=== PATIENT | female | born 1985 | race Hispanic/Latino ===

== ENCOUNTER 2017-02-07 19:21 | Emergency (ER) | payer BC ==
[2017-02-07 19:30] VITALS: RESP 16; O2SAT 100
--- NOTE | 2017-02-07 20:29 | ED PDOC ---
HPI: Abdomen Time Seen by Provider: 02/07/17 20:16 Chief Complaint (Nursing): Abdominal Pain Chief Complaint (Provider): Abdominal pain mainly RUQ History Per: Patient History/Exam Limitations: no limitations Onset/Duration Of Symptoms: Days (since ), Waxing/Waning Outside of [place] travel?: No Current Symptoms Are (Timing): Still Present Context: Food Pain Scale Rating Of: 6 (but at worse 10) Location Of Pain/Discomfort: RUQ Quality Of Discomfort: Gas Associated Symptoms: Nausea, Vomiting Exacerbating Factors: Food, Other (food other times it just get worse without anything exacerbating it ) Alleviating Factors: None Additional History Per: Patient Additional Complaint(s): Pt is a 32 y/o female with no significant medical history currently 10weeks presenting to ED with chief complaint of abdominal pain mainly RUQ pain that started on night shortly after dinner states she had a calzone for dinner, pain kept her up most of the night vomited twice night. Thursday morning woke up not feeling completely pain free so eat some plain rice during the day pain was ok but later that evening when she had pasta that had butter after 3 bites pain started started again. Today she only had plain rice and some banana. she called her painting technician who told her based of her symptoms it does not sound like it has anything to do with her but if pain persist she should get checked out. Pt reports pain started to get severe tonight and on her way to ED she vomited. Describes pain as gassy, does not radiate anywhere , denies any vaginal bleeding, dysuria, urinary frequency, diarrhea, chest pain, headache, fever, chills, lightheadedness PMD- None [employer]- [facility] in [facility] [place] Past Medical History Vital Signs: Last Vital Signs Temp 97.8 F 02/07/17 19:27 Pulse 48 L 02/07/17 19:27 Resp 16 02/07/17 19:27 BP 121/67 02/07/17 19:27 Pulse Ox 100 02/07/17 20:50 - Medical History PMH: No Chronic Diseases - Family History Family History: States: No Known Family Hx - Immunization History Hx Tetanus Toxoid Vaccination: No - Home Medications Home Medications: Ambulatory Orders Medication Instructions Recorded Nitrofurantoin Macrocrystals 100 mg PO BID #14 cap 02/08/17 [Macrobid] - Allergies Allergies/Adverse Reactions: Allergies Allergy/AdvReac Type Severity Reaction Status Date / Time panadol Allergy RASH Uncoded 02/07/17 19:33 Review of Systems Constitutional: Negative for: Fever, Chills, Malaise Cardiovascular: Negative for: Chest Pain, Palpitations, Light Headedness Respiratory: Negative for: Cough, Shortness of Breath Gastrointestinal: Positive for: Nausea, Vomiting, Abdominal Pain. Negative for : Diarrhea, Constipation Genitourinary Female: Negative for: Dysuria, Frequency, Vaginal Discharge, Vaginal Bleeding, Pelvic Pain Musculoskeletal: Negative for: Neck Pain, Back Pain Neurological: Negative for: Weakness, Dizziness Physical Exam - Physical Exam Appears: Positive for: No Acute Distress Skin: Positive for: Normal Color Eye Exam: Positive for: Normal appearance, EOMI Cardiovascular/Chest: Positive for: Regular Rate, Rhythm. Negative for: Murmur Respiratory: Positive for: Normal Breath Sounds. Negative for: Crackles, Rales Gastrointestinal/Abdominal: Positive for: Bowel Sounds, Soft, Tenderness (RUQ and RLQ pain on palpation, Negative Spring, Negative Mcburneys). Negative for : Distended, Guarding Back: Negative for: L CVA Tenderness, Muscle Spasm Extremity: Negative for: Tenderness, Calf Tenderness, Swelling Neurologic/Psych: Positive for: Alert, Oriented - Laboratory Results Result Diagrams: 02/07/17 20:27 02/07/17 20:30 Urine POC: Positive - ECG O2 Sat by Pulse Oximetry: 100 - Progress Re-evaluation Time: 23:40 Condition: Re-examined, Unchanged Medical Decision Making Medical Decision Making: Given pt's presentation will rule out gallstones and ectopic Cbc cmp lipase Ultrasound Pelvic ultrasound Urine postive for bacteria- will give script for asymptomatic bacteruria Informed pt of ovarian cyst seen on Ultrasound Disposition - Clinical Impression Clinical Impression: Abdominal pain, UTI (urinary tract infection) - Disposition Disposition: Routine/Home Disposition Time: 00:15 Condition: STABLE Additional Instructions: Please follow up with your Frame Sample And Pattern Supervisor in 1-2 days Return to Ed for any worsening of your condition Prescriptions: Nitrofurantoin Macrocrystals [Macrobid] 100 mg PO BID #14 cap Instructions: Urinary Tract Infection in (ED)
[2017-02-07 20:34] LABS: BASO # 0.1 K/uL (0.0-0.2); BASO % 0.7 % (0.0-2.0); EOS # 0.1 K/uL (0.0-0.7); EOS % 1.2 % (0.0-4.0); HEMATOCRIT 37.2 % (34.0-47.0); LYMPH # 2.4 K/uL (1.0-4.3); LYMPH % 24.8 % (20.0-40.0); MEAN CELL VOLUME 86.8 fl (81.0-99.0); MEAN CORPUSCULAR HEMOGLOBIN 28.6 pg (27.0-31.0); MEAN PLATELET VOLUME 9.2 fl (7.2-11.7); MONO # 1.1 K/uL (0.0-0.8); NEUT % 62.3 % (50.0-75.0); NRBC % 0.1 % (0.0-0.0); WHITE BLOOD COUNT 9.6 K/uL (4.8-10.8)
[2017-02-07 20:44] LABS: BLOOD UREA NITROGEN 7 mg/dl (7-17); CALCIUM 9.2 mg/dL (8.4-10.2); CARBON DIOXIDE 22 mmol/L (22-30); CHLORIDE 103 mmol/L (98-107); GFR AFRICAN-AMERICAN > 60; GLUCOSE,RANDOM 92 mg/dL (65-105); LIPASE 132 U/L (23-300); POTASSIUM 4.2 MMOL/L (3.6-5.0); SODIUM 134 mmol/l (132-148)
[2017-02-07 20:57] LABS: ALB/GLOB RATIO 1.3 (1.0-2.1); ALKALINE PHOSPHATASE 38 U/L (38-126); ALT/SGPT 28 U/L (9-52); AST/SGOT 22 U/L (14-36); BILIRUBIN,TOTAL 0.5 mg/dl (0.2-1.3); BLOOD UREA NITROGEN 7 mg/dl (7-17); CALCIUM 9.3 mg/dL (8.4-10.2); CARBON DIOXIDE 22 mmol/L (22-30); CHLORIDE 103 mmol/L (98-107); GFR AFRICAN-AMERICAN > 60; GLUCOSE,RANDOM 91 mg/dL (65-105); POTASSIUM 4.2 MMOL/L (3.6-5.0); SODIUM 134 mmol/l (132-148)
[2017-02-07 21:00] LABS: RBC URINE 1 /hpf (0-3); URINE BACTERIA MANY (<OCC); URINE BILIRUBIN NEGATIVE (NEGATIVE); URINE BLOOD NEGATIVE (NEGATIVE); URINE COLOR STRAW (YELLOW); URINE GLUCOSE (UA) NEG (Normal); URINE KETONE NEGATIVE (NEGATIVE); URINE LEUKOCYTE ESTERASE NEG Leu/uL (Negative); URINE PROTEIN NEGATIVE (NEGATIVE); URINE UROBILINOGEN 0.2-1.0 mg/dL (0.2-1.0); WBC URINE 4 /hpf (0-5)
[2017-02-08 00:28] VITALS: BP 115/85; PULSE 75; TEMP 97.9
--- NOTE | 2017-02-08 09:46 | US ---
HISTORY: RUQ pain COMPARISON: None available. TECHNIQUE: Sonographic evaluation of the right upper quadrant of the abdomen. FINDINGS: LIVER: Measures 13.5 cm in sagittal dimension and appears within normal limits of size, shape, and echotexture. No focal hepatic mass identified. The main portal vein appears patent with normal directional flow. No intrahepatic bile duct dilatation. GALLBLADDER: No gallstones. No gallbladder wall thickening or pericholecystic edema. Negative sonographic Mary's sign as assessed by the rug cleaner hand. COMMON BILE DUCT: Measures 4 mm. PANCREAS: Not well visualize. RIGHT KIDNEY: Measures 9.3 x 4.1 x 5.0 cm. No obstructing calculus or hydronephrosis identified. AORTA: Limited visualization appears grossly unremarkable. IVC: Limited visualization appears grossly unremarkable. OTHER FINDINGS: None . IMPRESSION: No acute findings. Preliminary impression was provided by virtual radiologic.
--- NOTE | 2017-02-08 09:56 | US ---
Indication: Rule out ectopic Comparison: None available Technique: Transvaginal pelvic ultrasound Findings: Uterus measures approximately 12.0 x 7.2 x 7.4 cm. Anteverted. Cervix length measures approximately 5 cm. Trace fluid noted within the cervix. There is a single intrauterine fetus present. 7 mm yolk sac. The gestational sac measures 3.8 cm and is compatible with a gestational age of 9 weeks 1 day. The crown-rump length measures 3.1 cm and is compatible with a gestational age of 10 weeks 0 days. There is heart motion which measured 157 BPM. The right ovary measures 4.6 x 1.8 x 3.2 cm and contains 1.3 x 1.2 cm cyst. The left ovary measures approximately 2.4 x 1.8 x 1.4 cm. Trace pelvic free fluid. Impression: Live single intrauterine with estimated gestational age 9 weeks 1 day by gestational sac calculation and 10 weeks 0 days by crown-rump length calculation. heart rate 157 bpm. Advise an anomaly screen at 16-18 weeks gestational age Trace pelvic free fluid. Trace fluid within the cervix. 1.4 cm anechoic right ovarian cyst. Preliminary impression was provided by virtual radiologic.
== END 2017-02-08 00:30 | disposition home or self-care (01) ==
LOC: H.ER 19:21
DX: O23.40 Unspecified infection of urinary tract in pregnancy, unspecified trimester (principal); O21.9 Vomiting of pregnancy, unspecified; Z3A.10 10 weeks gestation of pregnancy; N83.201 Unspecified ovarian cyst, right side

== ENCOUNTER 2017-09-03 17:14 | Inpatient (IN) | payer BC ==
[2017-09-03 18:00] VITALS: BMI 27.5
--- NOTE | 2017-09-03 18:08 | OBADHP ---
Datetime: 09/03/2017 18:01 Admit Comment, IP Provider: 32yo at 39.6wks GA c/o ctxs and gush of fluid _2hours ago. +FM. O therwise patient without complaints. No records available for review. Pt reports GBS+ PMHx none PSHx none Meds PNV NKDA OBHx SocHx No tob, etoh, drugs PE refer to PE A-- SROM, Early labor, GBS+ P-- Admit for management of labor, PCN-G for GBS proph. Discussed plan with patient and all patie nt questions answered. Pelvic Type - PN: Adequate Extremities - PN: Normal Abdomen - PN: Normal Back - PN: Normal General - PN: Normal FHR - Baseline A Provider: 120s-130s Membranes, Provider: Ruptured Contraction Comments Provider: q2-3min Comments, ACOG Physical Exam: SSE: grossly ruptured EFW 7.5lbs cephalic via exam Pool Provider: Positive Vital Signs Provider: Reviewed; Within Normal Limits IP Chief Complaint: Uterine contractions; Suspected ruptured membranes NICHD Variability Prov Fetus A: Moderate 6-25bpm NICHD Accel Fetus A IP Provider: 15X15 FHR Category Provider Fetus A: Category I NICHD Decel Fetus A IP Provider: None Dilatation, Provider: 1 Effacement, Provider: 100 Station, Provider: 0 Genitourinary Exam: Normal EGA AdmitDate IP: 39.6 IP Adm Impression: Term, intrauterine ; Active labor; Ruptured Membranes IP Admit Plan: Admit to unit; Initiate labor protocol
[2017-09-03] MEDS ORDERED: AMPicillin 2 GM in Sodium Chloride 0.9% 100 ML IVPB STA (18:09)
[2017-09-03] MEDS ORDERED: AMPicillin 1 GM in Sodium Chloride 0.9% 100 ML IVPB SCH (18:15)
[2017-09-03] MEDS ORDERED: Lactated Ringer's 1,000 ML IV SCH (18:15)
[2017-09-03] MEDS: Lactated Ringer's 1,000 ML IV SCH ×2 (18:15→18:30)
[2017-09-03 18:36] LABS: BASO # 0.1 K/uL (0.0-0.2); BASO % 0.7 % (0.0-2.0); EOS # 0.1 K/uL (0.0-0.7); EOS % 0.8 % (0.0-4.0); HEMATOCRIT 36.5 % (34.0-47.0); LYMPH # 2.5 K/uL (1.0-4.3); MEAN CELL VOLUME 86.8 fl (81.0-99.0); MEAN CORPUSCULAR HEMOGLOBIN 28.7 pg (27.0-31.0); MEAN CORPUSCULAR HGB CONC 33.1 g/dL (33.0-37.0); MEAN PLATELET VOLUME 10.4 fl (7.2-11.7); MONO # 1.5 K/uL (0.0-0.8); MONO % 11.5 % (0.0-10.0); NEUT # 8.9 K/uL (1.8-7.0); RED CELL DISTRIBUTION WIDTH 13.1 % (11.5-14.5); WHITE BLOOD COUNT 13.1 K/uL (4.8-10.8)
--- NOTE | 2017-09-03 18:54 | OBPN ---
Datetime: 09/03/2017 18:52 IP Progress Impression: Normal progression of labor; Reassuring heart rate IP Procedures: Sterile Vag Exam IP Progress Plan: Continue present management FHR - Baseline A Provider: 110s-120s IP Fetus A Comments: Minor variable decelerations. Resolved after exam and scalp stim. IP Progress Note Comment: Both MWB/FWB reassuring at this time. Continue current management. Vital Signs Provider: Reviewed; Within Normal Limits NICHD Accel Fetus A IP Provider: 15X15 FHR Category Provider Fetus A: Category II NICHD Variability Prov Fetus A: Moderate 6-25bpm Dilatation, Provider: 4 Effacement, Provider: 100 Station, Provider: 0 NICHD Decel Fetus A IP Provider: Variable Datetime: 09/03/2017 18:01 Pool Provider: Positive Membranes, Provider: Ruptured Contraction Comments Provider: q2-3min
[2017-09-03] MEDS ORDERED: Oxytocin 30 UNITS in Sodium Chloride 0.9% 500 ML IV ONE (19:03)
[2017-09-03] MEDS ORDERED: Fentanyl/Bupivacaine HCl 250 ML EPI ONE (19:08)
[2017-09-03] MEDS ORDERED: Bupivacaine HCl 0.25% PF (10 ml) Inj ONE (19:08)
[2017-09-03] MEDS ORDERED: ceFAZolin IV 2 gm in Dextrose 2 GM/50 ML BAG IVPB ONE (23:40)
[2017-09-03] MEDS ORDERED: ePHEDrine 50 mg/ml Inj ONE (23:46)
[2017-09-03] MEDS ORDERED: Phenylephrine 10 mg/ml Inj ONE (23:46)
[2017-09-03] MEDS ORDERED: Morphine 5 mg/10 ml preservative-free Inj(Duramorph) ONE (23:47)
[2017-09-03] MEDS ORDERED: Bupivacaine HCl 0.5% PF (30 ml) Inj ONE (23:48)
[2017-09-04] MEDS ORDERED: ceFAZolin IV 2 gm in Dextrose 2 GM/50 ML BAG IVPB ONE
[2017-09-04] MEDS ORDERED: Oxycodone/Acetaminophen 5/325 mg Tab PO PRN ×4 (00:41→03:56)
[2017-09-04] MEDS ORDERED: DiphenhydrAMINE 50 mg/ml Inj IVP PRN ×2 (00:41→03:56)
--- NOTE | 2017-09-04 08:27 | OBDS ---
DELIVERY PERSONNEL Delivery Doctor: Saloni Du MD Scrub Nurse: Dejah Nolasco Temporary Staff Accountant: Linnea Jimenez RN Anesthesiologist: Saloni Pham MD Resident: Dr. Ramos PGY1 MATERNAL INFORMATION Delivery Anesthesia: Epidural Medications in Delivery: oxytocin, ancef Estimated Blood Loss (ml): 800 Placenta Cultured: Yes Maternal Complications: None Other Maternal Complications: nonreassuring FHR Provider Comments: 1' LFT C/S Pt delivered viable infant male with apgars 9/9. Normal uterus, tubes bilat, ovaries bilat. EBL 800cc IVF 900cc LR UO 200cc clear No complications LABOR SUMMARY EDC: 09/04/2017 00:00 No. Babies in Womb: 1 Attempted: No Labor Anesthesia: Epidural LABOR INFORMATION Reason for Induction: Not Applicable Onset of Labor: 09/03/2017 19:00 Oxytocin: N/A Group B Beta Strep: Positive Antibiotics # of Doses: 2 Steroids Given: None Reason Steroids Not Administered: Not Applicable MEMBRANES Membranes Rupture Method: Spontaneous Rupture of Membranes: 09/03/2017 16:30 Length of Rupture (hrs): 7.77 Amniotic Fluid Color: Clear Amniotic Fluid Amount: Moderate Amniotic Fluid Odor: Normal STAGES OF LABOR Stage 3 hrs: 0 Stage 3 min: 1 Total Time in Labor hrs: 5 Total Time in Labor min: 17 CSECTION DELIVERY Primary Indication: Failure to Progress Secondary Indication: Nonreassuring Status CSection Urgency: Elective CSection Incidence: Primary Labor: Labor Elective: Elective CSection Incision: Lower Uterine Transverse Uterine Closure: Double-layer closure BABY A INFORMATION Delivery Date/Time: 09/04/2017 00:16 Method of Delivery: Born in Route : No : N/A Forceps: N/A Vacuum Extraction: N/A Shoulder Dystocia : No SHOULDER DYSTOCIA BABY A Delivery Date/Time: 09/04/2017 00:16 PRESENTATION/POSITION BABY A Presentation: Cephalic Cephalic Presentation: Vertex PLACENTA INFORMATION BABY A Placenta Delivery Time : 09/04/2017 00:17 Placenta Method of Delivery: Manual Removal Placenta Status: Delivered SCORES BABY A Heart Rate 1 min: >100 bpm Resp Effort 1 min: Good Cry Reflex Irritability 1 min: Cough or Sneeze or Pulls Away Muscle Tone 1 min: Active Motion Color 1 min: Body Jackpot, Extremities Blue Resuscitation Effort 1 min: N/A SCORE 1 MIN: 9 Heart Rate 5 min: >100 bpm Resp Effort 5 min: Good Cry Reflex Irritability 5 min: Cough or Sneeze or Pulls Away Muscle Tone 5 min: Active Motion Color 5 min: Body Jackpot, Extremities Blue Resuscitation Effort 5 min: N/A SCORE 5 MIN: 9 INFORMATION BABY A Gestational Age at Delivery: 40.0 Gestational Status: Term Outcome : Liveborn Infant Condition : Stable Infant Sex: Male IDENTIFICATION/MEDS BABY A ID Band Number: [id number] ID Band Location: Left Leg; Left Arm WEIGHT/LENGTH BABY A Birthweight (gms): 3960 Weight (lb): 8 Weight (oz): 12 Infant Length Inches: 21.00 Length cms: 53.3 CORD INFORMATION BABY A No. Cord Vessels: 3 Nuchal Cord : N/A Nuchal Cord Other: N/A True Knot: N/A Infant Cord pH Baby Arterial: N/A Cord pH Baby Venous: N/A Cord Blood Taken: Yes Banking/Donate Info: N/A Infant Suction: Mouth; Nose ASSESSMENT BABY A Infant Complications: None Physical Findings at Delivery: Within Normal Limits Physical Findings Other: skin to skin performed in OR Infant Respirations: Appears Normal Finishing Technician/ALS Called : No Care By: Susana Lujan EAdamoRN, JCarlocKRN Transferred To: Remains with Mother
[2017-09-05 06:47] LABS: HEMATOCRIT 29.5 % (34.0-47.0); MEAN CELL VOLUME 87.5 fl (81.0-99.0); MEAN CORPUSCULAR HGB CONC 33.1 g/dL (33.0-37.0); RED CELL DISTRIBUTION WIDTH 13.3 % (11.5-14.5)
--- NOTE | 2017-09-05 12:35 | OBPPN ---
Datetime: 09/05/2017 07:03 PP Nausea Prov: Denies PP Flatus Prov: Yes PP BM Prov: No PP Heart Prov: Normal PP Lungs Prov: Normal PP Abdomen/Uterus Prov: Normal PP Lochia Prov: Normal PP Vulva/Perineum Prov: Normal PP CVA Tenderness Prov: Normal PP Extremities Prov: Normal PP C/S Incision Prov: Normal PP Impression Prov: Normal progression PP Plan Prov: Continue present management PP Progress Note Prov: POD 1 32 y/o now seen and examined at bedside this morning. Pt had an uneventful overnight. Pt re ports pain in the area and its controlled with pain medications. Pt reports passing gas per rectum and no BM yet. Voiding w/ some blood noted. Pt is tolerating PO diet well. Ambulating w/o di zziness. Denies dizziness, chest pain, dyspnea, nausea, vomiting or calf pain. Physical Exam: General: A_O, resting comfortably in bed, NAD HEENT: oral mucosa moist. Lungs: CTA B/L, no wheezing, rhonchi or rales CVS: RRR, S1, S2 NL ABD: ND, +BS; Incision: steri strips intact. Wound looks clean, dry and intact. no induration, erythema or fluct uation. EXT: no edema, no calf tenderness Neuro/psych: AAOX3 Assessement: 32 yo s/p , doing well on POD#1 Plan: Continue regular diet as tolerated. SCD for DVT prophylaxis Ibuprofen and percocet for pain management Encourage and ambulation Anticipate discharge to home on 09/07/17 Sultan Ramos, PGY1 OB Hospitalist christin. On rounds, I saw and examined this patient. Agree with PGY1 note MAHNDO Vital Signs Provider PP: Reviewed
[2017-09-06 11:35] LABS: BILIRUBIN,TOTAL 0.3 mg/dl (0.2-1.3); TOTAL PROTEIN 6.1 G/DL (6.3-8.2)
[2017-09-06 11:43] LABS: PARTIAL THROMBOPLASTIN TIME 29.2 Seconds (25.6-37.1)
[2017-09-07 18:43] VITALS: BP 130/77; PULSE 66; RESP 20; TEMP 98.3; O2SAT 97
--- NOTE | 2017-09-08 22:57 | OBPPN ---
Datetime: 09/07/2017 06:30 PP Pain Prov: Within normal limits PP Nausea Prov: Denies PP Flatus Prov: Yes PP BM Prov: Yes PP Heart Prov: Normal PP Lungs Prov: Normal PP Abdomen/Uterus Prov: Normal PP Lochia Prov: Normal PP CVA Tenderness Prov: Normal PP Extremities Prov: Normal PP C/S Incision Prov: Normal PP Impression Prov: Normal progression PP Plan Prov: Discharge PP Progress Note Prov: 32 y/o F on POD 3. Pt had a on 09/04/17 due to failure to progress in labor and distress. No complications during delivery. Pt seen and examined by allison marie. Pt was found to be jaundiced on physical exam yesterday, blood work which contained LFT, platele t count and coagulation profile, were unremarkable. Pt reports feeling well, afebrile and tolerating PO. Pt voiding and ambulating with no difficulties. Pt reports passing gasses per rectum and having a bowel movement. Lochia is less than menses as per pt. with no issues. Pt denies visual disturbances, N/V, CP, SOB, urinary complaints or vaginal discharge. PE: Gen: Pt resting comfortably on bed, AAOx3, not in acute distress. Lungs: CTA B/L. No W/R/R. CV: S1 S2 present, regular rhythm. Abd: BS+, soft, fundus of uterus firm at level of umbilicus. Incision dry, clean and intact, adequ ate healing process. No erythema, discharge or tenderness appreciated. Ext: minimal edema, neg Vicenta's sign, non-tender calves. NEURO/PSYCH: no grossly focal deficit, preserved affect and mood. Skin: warm and dry. No ictericia present. A/P: 32 y/o on POD 3, stable and recovering well from . -Will discharge home today -Percocet 5/325mg and Ibuprofen 600 mg prescribed for pain management. Senokot S for bowel movemen t enhancement. -Pt instructed to return to clinic within 5 days for wound check and within 4-6 week for post-part um evaluation. -Encourage and ambulation, continue PNV, vaginal rest for 6 weeks, no heavy lifting. -ER precautions discussed with pt. Case discussed with Dr Nagel, OB pets salesperson Cari PGY-1. IP PP Procedures: None Datetime: 09/06/2017 09:00 PP Breasts Prov: Not Done PP Vulva/Perineum Prov: Not Done PP Progress Prov: Normal Vital Signs Provider PP: Reviewed; Within Normal Limits
== END 2017-09-07 13:57 | disposition home or self-care (01) | DRG 766 ==
LOC: H.EROB2 17:14 → H.L&D 18:09 → H.OB/GYN 09-04 03:45
PROVIDERS: ADMIT Obstetrics & Gynecology; ATTEND Obstetrics & Gynecology
PROC: 4A1HXCZ Monitoring of Products of Conception, Cardiac Rate, External Approach (ICD-10-PCS; 2017-09-03)
PROC: 10D00Z1 Extraction of Products of Conception, Low, Open Approach (ICD-10-PCS; principal; 2017-09-04)
DX: O76 Abnormality in fetal heart rate and rhythm complicating labor and delivery (principal); O62.2 Other uterine inertia; Z37.0 Single live birth; Z3A.40 40 weeks gestation of pregnancy